=== PATIENT | male | born 1970 | race Caucasian/White ===

== ENCOUNTER → 2016-07-18 | Outpatient (CLI) | payer BC, OTHER ==
[~2016-07-18] VITALS: Ht 177.8 cm; Wt 96.9 kg
[~2016-07-18] MED LIST: ALEVE220 MG PO; AMITIZA8 MCG PO; CELEXA 10 MG TA10 M1 PO; DEXILANT60 MG PO; HYDROCODONE-APA1 TA1 PO; IBUPROFEN 200200 M1 PO; MULTI VITAMIN1 EACH PO; PERCOCET 7.5-31 EACH PO; SUBOXONE 8 MG-1 EAC3 SL; ZANAFLEX4 MG PO
--- NOTE | ~2016-07-18 | HPC ---
[facility] [address] [address] PAIN MANAGEMENT CONSULTATION Name: REID POSADAS Peg Room #: REG [facility] Chad#: [id number] Admission: 07/18/16 Attend Phys: Wilbur Smith DO Discharge: Date of : 74 Report #: [id number] THIS REPORT FOR: //name// CC: Job Smith The patient is a 46-year-old gentleman, prior seen in the pain clinic back in April. He has symptomatic lumbar radiculopathy. He is status post 2 back surgeries have been treated for some cervical radicular symptoms. I have taken the liberty of providing a prescription for Percocet 7.5/325, limited 45 tablets at that time. Returns to pain clinic today. He notes back pain is becoming more problematic, right leg is numb, which has been chronic since his back surgery, but it seems to be getting worse recently. He drove to [place], since that time, he was having increasing weakness and paresthesia in the right leg. Denies bowel or bladder continence changes. Rates his pain at 6 on a 0-10 visual analog scale. Describes aching, burning, pressure, exacerbated with driving, walking, and standing. He notes coughing or sneezing significantly exacerbates pain, compatible with acute increased neurogenic claudication. We spent a prolonged visit today from 11:30 to noon, reviewing current issues. The patient notes he had prior had a history of opiate habituation with the great deal of difficulty weaning off opiates. He is very concerned about escalating opiate dose and getting into that cycle again. He does continue to smoke 1 pack a day, has somewhat of a habituative personality in that regard. Fortunately, he does not drink alcoholic beverages. PHYSICAL EXAMINATION: Shows a 46-year-old gentleman, BMI is 30.6 kilograms per meter squared. Blood pressure is 129/94, pulse 99, respirations are 16. NEUROLOGIC: Alert and oriented to person, place, and time. Judged to be a reasonable historian. MUSCULOSKELETAL: Rises from the chair using armrest. Gait is modestly antalgic. Grossly positive straight leg raise at 30 degrees on the right. Right hip flexion strength is diminished about 3-4/5. Lower extremity extension and dorsiflexion is 4/5, left leg is stronger at 4-5/5 for all muscle groups tested. The right Achilles reflex is absent, 1-2/4 on the left. Patellar reflex is generally symmetric, 2/4. Skin integument is generally intact. DIAGNOSTIC STUDIES: There are no recent diagnostic studies available for evaluation at this time. ASSESSMENT: Symptomatic lumbar radiculopathy, status post two decompressive laminectomies with acute exacerbation of neurogenic claudication symptoms with pain exacerbated with neural tensioning, pain exacerbated with valsalva type maneuvers (sneezing and coughing). Concerned for history of opiate habituation and difficulty weaning. RECOMMENDATIONS: [address] [address] PAIN MANAGEMENT CONSULTATION Name: REID POSADAS Peg Room #: REG [facility]illa#: [id number] Admission: 07/18/16 Attend Phys: Wilbur Smith DO Discharge: Date of : 74 Report #: [id number] 1. We will use a short course of Suboxone 02/01, 07/04 film b.i.d. sublingual for pain in gentleman with prior history of opiate habituation. Specficially, he states that he had a difficult time weaning off prescribed pain meds in the past. 2. Continue nonsteroidal anti-inflammatory medication (he is using a prescribed agent, but does not have the name presently). 3. We will get an MRI of the lumbar spine with and without contrast. Follow up after this diagnostic study, for lumbar epidural injection under fluoroscopy. With classic radicular symptoms, neural tensioning symptoms, exacerbated with coughing and sneezing, having failed conservative therapy including nonsteroidal anti-inflammatory medications, symptoms present recurrent for greater than 6 weeks, it should be indicated, both to get MRI of the lumbar spine, as well as lumbar epidural injection at earliest possible date. We will want to correlate position of the intervention with diagnostic studies. <ELECTRONICALLY SIGNED> By: Wilbur Smith DO 07/20/16 [id number] Wilbur Smith DO /nt
[2016-07-18 11:20] VITALS: BP 129/94
== END | disposition home or self-care (01) ==
LOC: PAIN 06-23 07:39
DX: M54.16 Radiculopathy, lumbar region (principal); G89.29 Other chronic pain; Z98.890 Other specified postprocedural states; F17.210 Nicotine dependence, cigarettes, uncomplicated